=== PATIENT | male | born 2000 | race Caucasian/White ===

== ENCOUNTER 2019-01-03 14:03 | Inpatient (IN) ==
[2019-01-03 14:54] LABS: Appearance Urine Clear (Clear); Bilirubin Urine Negative (Negative); Blood Urine Negative (Negative); Color Urine Yellow; Glucose Urine UA Negative (Negative); Ketones Urine Negative (Negative); Leukocyte Esterase Urine Negative (Negative); Nitrite Urine Negative (Negative); Protein Urine Negative (Negative); Specific Gravity Urine 1.024 (1.000-1.030); Urobilinogen Urine Negative (Negative)
[2019-01-03 15:03] LABS: Basophils # (auto) 0.05 K/uL (0-0.2); Basophils % (auto) 0.6 %; Eosinophils # (auto) 0.14 K/uL (0-0.5); Eosinophils % (auto) 1.6 %; Hematocrit (blood only) 44.9 % (42-52); Hemoglobin 15.3 g/dL (14.0-18.0); Immature Granulocytes # (auto) 0.06 K/uL (0.00-0.02); Immature Granulocytes % (auto) 0.7 %; Lymphocytes # (auto) 2.19 K/uL (1.2-3.4); Lymphocytes % (auto) 24.3 %; Mean Corpuscular Hgb Conc 34.1 g/dL (32-36); Mean Corpuscular Volume 82.4 fL (80-100); Mean Platelet Volume 9.4 fL (7.4-10.4); Neutrophils # (auto) 5.68 K/uL (1.4-6.5); Neutrophils % (auto) 62.8 %; Platelet Count 259 K/uL (130-400); RDW Coefficient of Variation 13.7 % (11.5-14.5); RDW Standard Deviation 41.1 fL (36.4-46.3); Red Blood Count 5.45 M/uL (4.7-6.1); White Blood Count 9.02 K/uL (4.8-10.8)
[2019-01-03 15:21] LABS: Albumin Level 3.6 gm/dl (3.4-5.0); BUN Creatinine Ratio 10.6 (10-20); Calcium 8.4 mg/dl (8.5-10.1); Creatinine Clr Calc Pharmacy 181.9 ml/min; Est GFR (African American) 142.7; Est GFR (Non-African American) 123.1; Potassium 3.9 mmol/L (3.5-5.1)
[2019-01-03 15:21] LABS: Amphetamines+Metham, Urine Neg (Neg); Barbiturates, Urine Neg (Neg); Benzodiazepine, Urine Neg (Neg); Cocaine, Urine Neg (Neg); MDMA (Ecstacy), Urine Neg (Neg); Methadone, Urine Neg (Neg); Opiate, Urine Neg (Neg); Phencyclidine, Urine Neg (Neg)
[2019-01-03 15:32] LABS: Bilirubin,Total 0.5 mg/dl (0.2-1); Globulin 3.6 gm/dl (2.5-4.0); Total Protein 7.2 gm/dl (6.4-8.2)
[2019-01-03 15:46] LABS: Acetaminophen < 2 ug/ml (10-30); Salicylate < 1.7 mg/dl (2.8-20)
[2019-01-03] MEDS ORDERED: MAGNESIUM HYDROXIDE SUSP 30 ML UDC PO PRN (19:11)
[2019-01-03] MEDS ORDERED: SODIUM CHLORIDE 0.65% NA SOLN 45 ML (OCEAN) PRN (19:11)
[2019-01-03] MEDS ORDERED: BISMUTH SUBSALICYLATE PER ML OMNICELL CHARGE PO PRN (19:11)
[2019-01-03] MEDS ORDERED: ALUMINUM/MAGNESIUM SUSP 30 ML UDC PO PRN (19:11)
[2019-01-03] MEDS ORDERED: ACETAMINOPHEN 325 MG TAB PO PRN (19:11)
--- NOTE | 2019-01-03 19:56 | Emergency Department Note ---
Entered by Erendira Larsen acting as a scribe for History of Present Illness General Chief complaint: Mental Health Evaluation Stated complaint: MENTAL HEALTH EVALUATION Source: patient and other (psych porter sample case) History of Present Illness Onset (ago): week(s) (last few weeks) Location: head Pain Consistency: + other (worsening) Maximum Pain Intensity: 2 Quality: + other (mental health) Associated symptoms: + denies other symptoms (any phsycial complaints) and + other (suicidal ideations, sucide attempt) The patient is a 18 year old male who presents to the Emergency Room for a mental health evaluation. Per the psych porter sample case, the patient went to see his therapist at [facility] today and admitted to having increased suicidal ideations. She states that he also told them that he attempted to overdose last night by taking 30 Ambien. She states that they are going to send over a petitioning statement. The patient states that yesterday he had a rough day and that he took them to try to kill himself. He states that he took 30 1 mg Ambien. The patient notes that he has struggled with depression for years, but it has b een worse lately due to issues with school and his family. The patient denies any physical complaints. Home Medications Home Medications Medication Instructions Recorded Confirmed Type desvenlafaxine succinate [Pristiq] 100 mg PO DAILY 01/03/19 01/03/19 History zolpidem [Ambien] 5 mg PO HS PRN 01/03/19 01/03/19 History Allergies Allergy/AdvReac Type Severity Reaction Status Date / Time No Known Allergies Allergy Unverified 08/09/18 17:23 Past Med/Surg History Medical History Depression No pertinent past medical history Family History Other No significant family history Social History Preferred Language: Danish marital status: Single Current Living Situation Comment: Roommate current occupational status: student Feels Safe at Home: Yes Smoking Status: Current some day smoker Review of Systems See HPI for pertinent positives & negatives. and A total of 10 systems reviewed and were otherwise negative Physical Exam Vital Signs Vital Signs - 24 hr 01/03/19 14:07 01/03/19 17:15 01/03/19 18:18 Temperature 36.7 C Temperature Source Oral Sepsis Recent Fever Within 48 Hours No Sepsis New/Unexplained Change in Mental Status No Sepsis Action Taken by Nursing No Action Required Pulse Rate 100 H Pulse Rate [Right Finger] 92 H 96 H Pulse Rhythm [Right Finger] Regular Regular Pulse Strength [Right Finger] Normal Normal Respiratory Rate 16 16 16 Respiratory Effort / Characteristics Non-Labored Non-Labored Respiratory Depth Normal Normal Normal Respiratory Pattern Regular Regular Blood Pressure 178/103 H Blood Pressure [Right Arm] 151/77 H 148/98 H Blood Pressure Mean 128 Blood Pressure Mean [Right Arm] 101 114 Blood Pressure Position Sitting Blood Pressure Position [Right Arm] Lying Sitting Pulse Oximetry 97 97 98 Oxygen Delivery Method Room Air Room Air Room Air GENERAL: Sitting up in bed, alert, well appearing, well nourished, no distress, non-toxic EYE EXAM: normal conjunctiva. OROPHARYNX: no exudate, no erythema, lips, buccal mucosa, and tongue normal and mucous membranes are moist NECK: supple, no nuchal rigidity, no adenopathy, non-tender LUNGS: Clear to auscultation. Normal chest wall mechanics HEART: no murmurs, S1 normal and S2 normal ABDOMEN: abdomen soft, non-tender, normo-active bowel, sounds, no masses, no manoj ound or guarding. BACK: Back is symmetrical on inspection and there is no deformity, no midline tenderness, no CVA tenderness. SKIN: no rashes and no bruising UPPER EXTREMITIES: upper extremities are grossly normal. LOWER EXTREMITIES: No pitting edema. NEURO EXAM: Normal sensorium, cranial nerves II-XII grossly intact, normal speech, no gross weakness of arms, no gross weakness of legs. PSYCH: Admits to suicide attempt yesterday. Course ED COURSE: Vital signs were reviewed and showed hypertension. The patients medical record was reviewed The above diagnostic studies were performed and reviewed. ED treatments and interventions as stated above. 1416: The patient was evaluated in room A6. A complete history and physical examination was performed. 1757: The patient was accepted to [address] [place] [address] at this time. Based on the patients age, coexisting illnesses, exam and lab findings the decision to treat as an inpatient was made. The patient remained stable while under my care. The patient will be evaluated for further management. Medical Decision Making Differential Diagnosis Etiologies such as psychiatric disorder, infection, hypoglycemia, electrolyte abnormalities, cardiac sources, intracerebral event, toxicological process, neurologic disorder, as well as others were entertained. Medical Records Attestation: I reviewed the patient's medical records. Home Medications Current Medication List: was personally reviewed by me Laboratory Data Attestation: I reviewed the patient's lab results. Result diagrams: 01/03/19 14:45 01/03/19 14:45 Lab Results 01/03/19 01/03/19 01/03/19 Range/Units 14:26 14:26 14:45 WBC 9.02 (4.8-10.8) K/uL RBC 5.45 (4.7-6.1) M/uL Hgb 15.3 (14.0-18.0) g/dL Hct 44.9 (42-52) % MCV 82.4 (80-100) fL MCH 28.1 (25-34) pg MCHC 34.1 (32-36) g/dL RDW Std Deviation 41.1 (36.4-46.3) fL RDW Coeff of Cely 13.7 (11.5-14.5) % Plt Count 259 (130-400) K/uL MPV 9.4 (7.4-10.4) fL Immature Gran % (Auto) 0.7 % Neut % (Auto) 62.8 % Lymph % (Auto) 24.3 % Spink % (Auto) 10.0 % Eos % (Auto) 1.6 % Baso % (Auto) 0.6 % Immature Gran # (Auto) 0.06 H (0.00-0.02) K/uL Neut # (Auto) 5.68 (1.4-6.5) K/uL Lymph # (Auto) 2.19 (1.2-3.4) K/uL Spink # (Auto) 0.90 H (0.11-0.59) K/uL Eos # (Auto) 0.14 (0-0.5) K/uL Baso # (Auto) 0.05 (0-0.2) K/uL Sodium (136-145) mmol/L Potassium (3.5-5.1) mmol/L Chloride (98-107) mmol/L Carbon Dioxide (21-32) mmol/L Anion Gap (3-11) BUN (7-18) mg/dl Creatinine (0.6-1.4) mg/dl Est Cr Clr Drug Dosing ml/min Est GFR ( Amer) Est GFR (Non-Af Amer) BUN/Creatinine Ratio (10-20) Glucose (70-99) mg/dl Calcium (8.5-10.1) mg/dl Total Bilirubin (0.2-1) mg/dl AST (15-37) U/L ALT (12-78) U/L Alkaline Phosphatase (45-117) U/L Total Protein (6.4-8.2) gm/dl Albumin (3.4-5.0) gm/dl Globulin (2.5-4.0) gm/dl Albumin/Globulin Ratio (0.9-2) TSH (0.300-4.500) uIu/ml Urine Color Yellow Urine Appearance Clear (Clear) Urine pH 8.0 H (4.5-7.5) Ur Specific [place] 1.024 (1.000-1.030) Urine Protein Negative (Negative) Urine Glucose (UA) Negative (Negative) Urine Ketones Negative (Negative) Urine Blood Negative (Negative) Urine Nitrite Negative (Negative) Urine Bilirubin Negative (Negative) Urine Urobilinogen Negative (Negative) Ur Leukocyte Esterase Negative (Negative) Salicylates (2.8-20) mg/dl Urine Opiates Screen Neg (Neg) Ur Methadone, Qual Neg (Neg) Acetaminophen (10-30) ug/ml Urine Barbiturates Neg (Neg) Ur Phencyclidine (PCP) Neg (Neg) U Amphetamin/Meth Scrn Neg (Neg) MDMA (Ecstasy) Screen Neg (Neg) U Benzodiazepines Scrn Neg (Neg) Ur Cocaine Metabolite Neg (Neg) U Marijuana (THC) Screen Neg (Neg) Ethyl Alcohol mg/dL (0-3) mg/dl 01/03/19 01/03/19 01/03/19 Range/Units 14:45 14:45 14:45 WBC (4.8-10.8) K/uL RBC (4.7-6.1) M/uL Hgb (14.0-18.0) g/dL Hct (42-52) % MCV (80-100) fL MCH (25-34) pg MCHC (32-36) g/dL RDW Std Deviation (36.4-46.3) fL RDW Coeff of Cely (11.5-14.5) % Plt Count (130-400) K/uL MPV (7.4-10.4) fL Immature Gran % (Auto) % Neut % (Auto) % Lymph % (Auto) % Spink % (Auto) % Eos % (Auto) % Baso % (Auto) % Immature Gran # (Auto) (0.00-0.02) K/uL Neut # (Auto) (1.4-6.5) K/uL Lymph # (Auto) (1.2-3.4) K/uL Spink # (Auto) (0.11-0.59) K/uL Eos # (Auto) (0-0.5) K/uL Baso # (Auto) (0-0.2) K/uL Sodium 140 (136-145) mmol/L Potassium 3.9 (3.5-5.1) mmol/L Chloride 107 (98-107) mmol/L Carbon Dioxide 25 (21-32) mmol/L Anion Gap 8.0 (3-11) BUN 9 (7-18) mg/dl Creatinine 0.89 (0.6-1.4) mg/dl Est Cr Clr Drug Dosing 181.9 ml/min Est GFR ( Amer) 142.7 Est GFR (Non-Af Amer) 123.1 BUN/Creatinine Ratio 10.6 (10-20) Glucose 96 (70-99) mg/dl Calcium 8.4 L (8.5-10.1) mg/dl Total Bilirubin 0.5 (0.2-1) mg/dl AST 14 L (15-37) U/L ALT 46 (12-78) U/L Alkaline Phosphatase 60 (45-117) U/L Total Protein 7.2 (6.4-8.2) gm/dl Albumin 3.6 (3.4-5.0) gm/dl Globulin 3.6 (2.5-4.0) gm/dl Albumin/Globulin Ratio 1.0 (0.9-2) TSH 1.240 (0.300-4.500) uIu/ml Urine Color Urine Appearance (Clear) Urine pH (4.5-7.5) Ur Specific [place] (1.000-1.030) Urine Protein (Negative) Urine Glucose (UA) (Negative) Urine Ketones (Negative) Urine Blood (Negative) Urine Nitrite (Negative) Urine Bilirubin (Negative) Urine Urobilinogen (Negative) Ur Leukocyte Esterase (Negative) Salicylates < 1.7 L (2.8-20) mg/dl Urine Opiates Screen (Neg) Ur Methadone, Qual (Neg) Acetaminophen < 2 L (10-30) ug/ml Urine Barbiturates (Neg) Ur Phencyclidine (PCP) (Neg) U Amphetamin/Meth Scrn (Neg) MDMA (Ecstasy) Screen (Neg) U Benzodiazepines Scrn (Neg) Ur Cocaine Metabolite (Neg) U Marijuana (THC) Screen (Neg) Ethyl Alcohol mg/dL < 3.0 (0-3) mg/dl Blood Pressure Blood Pressure Findings: Elevated blood pressure Blood Pressure Disposition: elevated BP felt to be situational MDM Narrative Patient is a 18-year-old male who presents the ER with suicidality and attempted overdose last night on Ambien. He has no other complaints per. Labs were obtained and showed no significant leukocytosis or anemia P along with LFTs bilirubin and TSH was unremarkable. UA was negative. Salicylates and tox was negative. Vitals are unremarkable. Patient was updated bedside. Patient was evaluated by 3 S. This overdose was yesterday around 10 PM. No residual effects at this time. Patient was admitted on 201 for suicide attempt. Impression & Plan Mood disorder, Suicide attempt Discharge Plan Visit Data *Final* Discharge Date/Time: 01/03/19 18:46 Chief Complaint: Mental Health Evaluation Stated Complaint: MENTAL HEALTH EVALUATION ED Provider: Sinan Barrett Discharge Problem: Mood disorder, Suicide attempt Patient Disposition: Admitted As Inpatient Discharge Instructions Interventions: ED Discharge Assessment Last Done: 01/03/19 18:46 The tommyibe's documentation has been prepared under my direction and personally reviewed by me in its entirety. I confirm that the note above accurately reflects all work, treatment, procedures, and medical decision making performed by me.
--- NOTE | 2019-01-04 09:46 | History & Physical ---
Date of Service January 04, 2019 Impression / Recommendations Impression 18-year-old [employer] [facility] [employer] student from [place], who presented to the emergency department after an overdose of Ambien the day prior. He has been on Pristiq for the better part of a year and although he initially found it helpful, he is on a maximum dose and remains depressed and anxious. He provides information describing what may have been a hypomanic episode recently and so after discussing multiple possible medication options, we have agreed to augment with Abilify, if affordable, to target mood/anxiety and potentially an underlying bipolar diathesis. We will DC Ambien and recommend that he not have access moving forward as he has abused it multiple times to OD, get high or get some external courage socially. We will coordinate with his therapist and reschedule his first appt with Dr. Nicole. At this time, the patient requires inpatient care due to the severity of his condition and the ongoing risk for self harm if discharged. (1) Mood disorder: 01/04 Differential includes major depression, SANTY, Bipolar II disorder - Continue Pristiq 100 mg for now - Add Abilify 2.5 mg daily if affordable with insurance - Q 15 min checks for safety - Encourage participation in group and individual counseling - Family meeting when mother arrives. She is also bringing records from [place] psychiatrist - Contact with the university as needed - Safety planning - Assist the patient to explore healthy coping strategies Present on Admission?: Yes Inventory Assets Strengths: Commitment to treatment Needs: Healthy coping strategies Risk Factors Assessment Male: Yes : Yes Do You Have Access To A Gun?: No Health Problems: No Mental Health Diagnoses: Yes Substance Use Disorders: No Previous Attempt: Yes Family History of Suicide: Yes Previous Psychiatric Hospitalization: No Smoker: No Protective Factors Assessment : No Responsible for Young Children: No Employed: No Stable Relationships: Yes Supportive Family: Yes Good Rapport with Provider: Yes Psychiatric History Identifying Data SAMI GUZMAN is a 18-year-old M from [place] who presented to the ED at the encouragement of his therapist at [facility] after admitting to overdosing on Ambien the night before. He is admitted voluntarily. Information is obtained from the patient and considered to be reliable. Chief Complaint "I've been depressed since high school. ". History of Present Illness The patient is a 18 yo male from [place], here attending [employer] [facility] [employer], who describes having been depressed and anxious since high school. He reports having been bullied in school because he was overweight and knox, but never entered into mental health treatment. He came to [employer] [facility] [employer] and during his freshman year felt alone and had difficulty meeting people and so told his mother during the summer after his fresh year that he wanted to see a psychiatrist. He was put on Prozac which didn't seem to help and also had BLANCO's. He switched providers and was put on Pristiq which he continues to take at 100 mg. daily. He felt initially that it was helpful. He says that he did well until Jul 2018 when his best friend from [place], studying in [place], and attempted suicide. He flew down to [place] to be of assistance but was not immediately allowed to see him. Over the course of the next week he managed to assist him and talk with social workers but at the end of the week was exhausted and sad. He returned [employer] and admits that he took several Ambien in order to give him encouraged to respond to somebody on the gait tender. He went on to meet this person in a hotel for a consensual sexual act but apparently it went beyond that and it turned into something aggressive and nonconsensual. He became worried that he might get a sexually transmitted disease and so presented to the emergency department and later got put on medications to prevent HIV. He said the medications caused unpleasant side effects on top of everything else. At that point he decided he needed to get into therapy and so has been seeing Lesli at [facility]. He also had an appointment today to begin treatment with Dr. Nicole. Since the fall he feels like "everything is going downhill" at school, with his mood. He admits to having some chronic suicidal ideation but never had a plan or intent to follow through. Recently with his worsening mood, he feels like "I have had enough, I have been sad for a long while" and decided that he wanted to end his life. 2 nights ago he took 30 Ambien pills. After he had taken them, his boyfriend from [place] called and he spent some time talking on the phone with him. His boyfriend was encouraging him told him to get some orange juice, kept him awake for a while. The patient later fell asleep and when he woke up he was disappointed it had not worked but in the same breath felt guilty for what he might have done to his mother and his boyfriend. He then attended a scheduled appointment with his therapist and she recommended he come to the emergency room. Today he remains sad. He indicates that for the first time in his life "I felt okay with dying" which was scary for him. He reports that his sleep in the last month or more has been "horrible" with difficulty falling asleep, sometimes taking for 5 hours. He reports that his appetite has been poor in that he is eating junk food and his weight is climbing. He reports poor focus and concentration, and has not been attending some of his classes. He admits to chronic anxiety, trouble initiating social contact with others. He has had long-standing panic attacks with no identifiable trigger with last panic attack about 2 days ago. He describes during panic attacks he feels short of breath and like the room is getting very small. He denies ever having had auditory or visual hallucinations. He denies self-injurious behaviors, or any eating disordered behaviors. In terms of possible bipolar symptoms, he indicates that last week for example he had a period of high energy and elevated mood and went to his therapist and questioned why he was even there. During that time he also had less need for sleep and felt like "I can do anything". Past Psychiatric History Previous Psych History: Has a psychiatrist that he sees in [place] Current Psychiatric Diagnosis: MDD Outpatient Services: Lesli Montaño therapist Previous Psych Admissions: None Do You Have Access To A Gun?: No History of Previous Suicide Attempt: Yes Describe Attempts in the Past: 07/2018 OD. Admits to multiple times when he is taken too much Ambien Past Medication Trials: Eleuterio Past Head Trauma/Neuro History History of Concussion/Seizure: No Allergies Allergy/AdvReac Type Severity Reaction Status Date / Time No Known Allergies Allergy Unverified 08/09/18 17:23 Home Medications Home Medications Medication Instructions Recorded Confirmed Type desvenlafaxine succinate [Pristiq] 100 mg PO DAILY 01/03/19 01/03/19 History zolpidem [Ambien] 5 mg PO HS PRN 01/03/19 01/03/19 History Family History Family History of: Depression, Bipolar and Suicide Completion Family Mental Health History Comment: Mother - depression, sister - anorexia, maternal grandmother - depression, maternal grandfather - MDD, maternal great uncle - bipolar & completed suicide Alcohol History Hx of Alcohol Use Over the Past 12 Months: Yes ("socially") AUDIT Total Score: 1 Smoking Use Have You Smoked or Used Tobacco Products in the Last 30 Days: No tobacco type: e-cigarettes Smoking Status: Never smoker Substance History Hx of Prescription Med Misuse Over the Past 12 Months: No Hx of Over the Counter Med Misuse Over the Past 12 Months: No Hx of Inhalent Misuse Over the Past 12 Months: No Hx of Organic Substance Use Over the Past 12 Months: No Hx of Illegal Substances/Street Drug Use Over Past 12 Months: No Problems as a Result of Past Substance Use: None Identified Personal History Living Arrangements: APartment (With 4 roommates) Living Arrangements Comments: Lives with 4 roommates - 2 were friends prior to living together Born In: [place] but grew up in [place] Childhood: Raised by both mother and father. He has 1 younger sister and one younger brother. Highest Grade Completed: [id number] Highest Grade Completed Comment: [employer] majoring in Criminology Employment Status: Student Marital Status: Single Number Of Children: 0 Beliefs That Will Affect Care: None Current Legal Problems: No Hx Legal Problems: No Hx Traumatic Life Events: Yes Psychological Trauma History Comment: Bullied in school Patient History Medical History Depression No pertinent past medical history Family History Other No significant family history Social History Preferred Language: Slovenian Communication Ability: Effective Pay Clerk Required: No Beliefs That Will Affect Care: None marital status: Single Current Living Situation Comment: Roommate current occupational status: student Feels Safe at Home: Yes Smoking Status: Never smoker Review of Systems All systems reviewed & are unremarkable except as noted in HPI & below Physical Exam Mental Examination Physical exam performed by Dr. Barrett in the emergency department has been reviewed and accepted as medical clearance for our unit. Psychiatric Orientation: alert, oriented x 3 and cooperative Apperance: appropriately dressed and appropriately groomed Eye Contact: good eye contact Motor Behavior: steady gait and station and no abnormal motor movements Speech: normal rate/rhythm/volume of speech Affect: + depressed affect and + anxious affect Mood: + depressed mood and + anxious mood Thought Process: goal directed thought process Thought Content: reality based without delusions Suicidal Thoughts: + reports suicidal thoughts, + reports suicidal plan and + reports suicidal intent (Overdosed on Ambien) Homicidal Thoughts: denies homicidal thoughts Hallucinations: no auditory hallucinations and no visual hallucinations Cognition: recent memory grossly intact, remote memory grossly intact and attention grossly intact Estimated Intelligence: average estimated intelligence Insight: + impaired insight Judgement: + impaired judgement Vital Signs (Past 24 Hours) Last Vital Signs Temp 36.5 C 01/04/19 06:46 Pulse 87 01/04/19 06:46 Resp 16 01/04/19 06:46 BP 141/77 H 01/04/19 06:46 Pulse Ox 98 01/03/19 18:18 Results & Data Laboratory Results Laboratory Results - last 24 hr 01/03/19 01/03/19 01/03/19 14:26 14:26 14:45 WBC 9.02 RBC 5.45 Hgb 15.3 Hct 44.9 MCV 82.4 MCH 28.1 MCHC 34.1 RDW Std Deviation 41.1 RDW Coeff of Cely 13.7 Plt Count 259 MPV 9.4 Immature Gran % (Auto) 0.7 Neut % (Auto) 62.8 Lymph % (Auto) 24.3 [place] % (Auto) 10.0 Eos % (Auto) 1.6 Baso % (Auto) 0.6 Immature Gran # (Auto) 0.06 H Neut # (Auto) 5.68 Lymph # (Auto) 2.19 [place] # (Auto) 0.90 H Eos # (Auto) 0.14 Baso # (Auto) 0.05 Sodium Potassium Chloride Carbon Dioxide Anion Gap BUN Creatinine Est Cr Clr Drug Dosing Est GFR ( Amer) Est GFR (Non-Af Amer) BUN/Creatinine Ratio Glucose Calcium Total Bilirubin AST ALT Alkaline Phosphatase Total Protein Albumin Globulin Albumin/Globulin Ratio TSH Urine Color Yellow Urine Appearance Clear Urine pH 8.0 H Ur Specific [place] 1.024 Urine Protein Negative Urine Glucose (UA) Negative Urine Ketones Negative Urine Blood Negative Urine Nitrite Negative Urine Bilirubin Negative Urine Urobilinogen Negative Ur Leukocyte Esterase Negative Salicylates Urine Opiates Screen Neg Ur Methadone, Qual Neg Acetaminophen Urine Barbiturates Neg Ur Phencyclidine (PCP) Neg U Amphetamin/Meth Scrn Neg MDMA (Ecstasy) Screen Neg U Benzodiazepines Scrn Neg Ur Cocaine Metabolite Neg U Marijuana (THC) Screen Neg Ethyl Alcohol mg/dL 01/03/19 01/03/19 01/03/19 14:45 14:45 14:45 WBC RBC Hgb Hct MCV MCH MCHC RDW Std Deviation RDW Coeff of Cely Plt Count MPV Immature Gran % (Auto) Neut % (Auto) Lymph % (Auto) [place] % (Auto) Eos % (Auto) Baso % (Auto) Immature Gran # (Auto) Neut # (Auto) Lymph # (Auto) [place] # (Auto) Eos # (Auto) Baso # (Auto) Sodium 140 Potassium 3.9 Chloride 107 Carbon Dioxide 25 Anion Gap 8.0 BUN 9 Creatinine 0.89 Est Cr Clr Drug Dosing 181.9 Est GFR ( Amer) 142.7 Est GFR (Non-Af Amer) 123.1 BUN/Creatinine Ratio 10.6 Glucose 96 Calcium 8.4 L Total Bilirubin 0.5 AST 14 L ALT 46 Alkaline Phosphatase 60 Total Protein 7.2 Albumin 3.6 Globulin 3.6 Albumin/Globulin Ratio 1.0 TSH 1.240 Urine Color Urine Appearance Urine pH Ur Specific [place] Urine Protein Urine Glucose (UA) Urine Ketones Urine Blood Urine Nitrite Urine Bilirubin Urine Urobilinogen Ur Leukocyte Esterase Salicylates < 1.7 L Urine Opiates Screen Ur Methadone, Qual Acetaminophen < 2 L Urine Barbiturates Ur Phencyclidine (PCP) U Amphetamin/Meth Scrn MDMA (Ecstasy) Screen U Benzodiazepines Scrn Ur Cocaine Metabolite U Marijuana (THC) Screen Ethyl Alcohol mg/dL < 3.0 Current Inpatient Medications Current Inpatient Medications: Current Inpatient Medications Acetaminophen (Tylenol) 650 mg PO Q4H PRN PRN Reason: Headache or Minor Fever Stop: 02/02/19 19:10 Al Hydrox/Mg Hydrox/Simethicone (Maalox) 30 ml PO Q4H PRN PRN Reason: GI Upset Stop: 02/02/19 19:10 Bismuth Subsalicylate (Kaopectate) 15 ml PO PRN PRN PRN Reason: Loose Stool Stop: 02/02/19 19:10 Hydroxyzine HCl (Vistaril) 25 mg PO Q4H PRN PRN Reason: Anxiety Stop: 02/02/19 19:10 Hydroxyzine HCl (Vistaril) 50 mg PO HSZ PRN PRN Reason: Insomnia Stop: 02/02/19 19:10 Magnesium Hydroxide (Milk Of Magnesia) 30 ml PO DAILY PRN PRN Reason: Heartburn Stop: 02/02/19 19:10 Miscellaneous (Order Awaiting Action) 1 ea N/A QS PHILIPPE Stop: 02/03/19 00:00 Last Admin: 01/04/19 00:37 Dose: Not Given Documented by: Sodium Chloride ([place] Nasal) 1 - 2 sprays NA PRN PRN PRN Reason: Nasal Dryness/Congestion Stop: 02/02/19 19:10 CPT Code CPT Code Initial Hospital Care: 83618
[2019-01-04] MEDS: DESVENLAFAXINE SUCCINATE 100 MG PO SCH (19:57)
[2019-01-05] MEDS ORDERED: DESVENLAFAXINE SUCCINATE PO SCH (09:00)
[2019-01-05] MEDS: ARIPiprazole 5 MG TAB PO SCH (09:05)
[2019-01-05] MEDS: DESVENLAFAXINE SUCCINATE 100 MG PO SCH (09:06)
--- NOTE | 2019-01-05 10:48 | Psychiatric Progress Note ---
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 He has been on Pristiq for the better part of a year and although he initially found it helpful, he is on a maximum dose and remains depressed and anxious. He endorses recent symptoms of hypomania, so has been started on aripiprazole for depression with a possible bipolar diathesis. He continues to require inpatient care due to the severity of his mood symptoms with a serious suicide attempts prior to admission, and risk for self harm if discharged prematurely. (1) Mood disorder: 01/04 Differential includes major depression, SANTY, Bipolar II disorder - Continue Pristiq 100 mg for now - Add Abilify 2.5 mg daily if affordable with insurance - Q 15 min checks for safety - Encourage participation in group and individual counseling - Family meeting when mother arrives. She is also bringing records from [place] psychiatrist - Contact with the university as needed - Safety planning - Assist the patient to explore healthy coping strategies 01/05 -Aripiprazole 2.5 mg started today. Fasting lipid profile and glucose ordered for tomorrow for baseline on an atypical antipsychotic. Side effects reviewed with the patient, including metabolic syndrome and the need for ongoing monitoring. -Family meeting held with mother yesterday. Father is coming from [facility] tomorrow. -Ambien has been discontinued, and recommend that he not have access moving forward as he has abused it multiple times to get high or for social courage, and overdosed on it in a suicide attempt. We will coordinate with his therapist and reschedule his first appt with Dr. Nicole. Inventory Assets Strengths: Commitment to treatment Needs: Healthy coping strategies Risk Factors Assessment Male: Yes : Yes Do You Have Access To A Gun?: No Health Problems: No Mental Health Diagnoses: Yes Substance Use Disorders: No Previous Attempt: Yes Family History of Suicide: Yes Previous Psychiatric Hospitalization: No Smoker: No Protective Factors Assessment : No Responsible for Young Children: No Employed: No Stable Relationships: Yes Supportive Family: Yes Good Rapport with Provider: Yes Interval History Identifying Information SAMI GUZMAN is a 18-year-old M from [place] who presented to the ED 01/03/19 at the encouragement of his therapist at [facility] after admitting to overdosing on Ambien the night before. He is admitted voluntarily. Chief Complaint "I'm feeling better after talking to my boyfriend". Review of Systems Sleep Information Total Hours of Sleep: 7 Sleep Comments: pt on q-15 minute checks Meal Information Percent Meal Consumed - Breakfast: 100 Percent Meal Consumed - Lunch: 100 Percent Meal Consumed - Dinner: 100 Subjective Subjective Patient was seen & assessed and interval progress reviewed with Treatment Team. Staff report he had a family meeting with his mother, who flew in from [place], yesterday. They discussed his high school years, as he began to experience depression during his freshman year, but did not tell his family at the time. His sophomore year, he told his parents that he was knox, which they struggled with. They wanted him to attend therapy, which he did briefly. He talked about his parents reaction, that they made him feel ashamed for doing things like painting his fingernails, and his mother expressed understanding that their initial response was overly critical. During that period of time, he had frequent panic attacks, which resolved and he had not had them in a long time, until the day of his overdose. He talked about a sexual encounter in July 2018 which seemed to trigger his most recent episode of depression. He was in [place] visiting a friend who had attempted suicide, was feeling lonely, and used an kvng on his phone to find a male, who he invited to his hotel room. Although their sexual interaction was initially consensual, the other individual then became aggressive, and at one point the patient noticed he had taken off his condom and "freaked out." He sought preventative HIV treatment afterwards, and felt disappointed in himself. He talked about his difficulty disclosing things to his parents due to their past reactions. His mother stated that she would like to stay in [place] until the end of the semester, which the patient was not in agreement with, stating he enjoys his independence and does not want to disrupt his family. They agreed to postpone this topic until later. On my assessment, he reports that mood is improved today, which he attributes to a good night of sleep last night. He started the aripiprazole today, and is hopeful that it will help, but also worried that he will have side effects. He is working on a safety plan, and states that one thing he wants to do is "stay away from that medication (Ambien)." He states that he was initially taking extra doses of the medication, not necessarily in an attempt to end his life, but then became altered and decided to overdose in a suicide attempt. He describes feeling "really scared, like I did not recognize myself." It was helpful to talk with his boyfriend and the counselor yesterday. He feels safe here and denies suicidal thoughts. His father is coming from [facility] tomorrow, and he is hoping to talk to his parents about plans for after discharge, as he would like them to stay for about a week, but would then like them to go home. Physical Exam Psychiatric Orientation: alert and oriented x 3 Apperance: appropriately dressed, appropriately groomed and appeared stated age Eye Contact: good eye contact Motor Behavior: steady gait and station and no abnormal motor movements Speech: normal rate/rhythm/volume of speech Affect: + depressed affect (But brightens appropriately with brief periods of smiling) Mood: + depressed mood (But improved from admission) Thought Process: goal directed thought process Thought Content: reality based without delusions Suicidal Thoughts: denies suicidal thoughts Homicidal Thoughts: denies homicidal thoughts Hallucinations: no auditory hallucinations Cognition: recent memory grossly intact, attention grossly intact and language grossly intact Insight: + fair insight Judgement: + fair judgement Vital Signs (Past 24 Hours) Last Vital Signs Temp 36.5 C 01/05/19 06:44 Pulse 80 01/05/19 06:45 Resp 16 01/05/19 06:44 BP 140/95 01/05/19 06:45 Pulse Ox 98 01/03/19 18:18 Results & Data Current Inpatient Medications Current Inpatient Medications: Current Inpatient Medications Acetaminophen (Tylenol) 650 mg PO Q4H PRN PRN Reason: Headache or Minor Fever Stop: 02/02/19 19:10 Al Hydrox/Mg Hydrox/Simethicone (Maalox) 30 ml PO Q4H PRN PRN Reason: GI Upset Stop: 02/02/19 19:10 Aripiprazole (Abilify) 2.5 mg PO QAM PHILIPPE Stop: 02/04/19 08:59 Last Admin: 01/05/19 09:05 Dose: 2.5 mg Documented by: Bismuth Subsalicylate (Kaopectate) 15 ml PO PRN PRN PRN Reason: Loose Stool Stop: 02/02/19 19:10 Desvenlafaxine Succinate (Pristiq) 1 ea PO DAILY PHILIPPE Stop: 02/04/19 08:59 Last Admin: 01/05/19 09:06 Dose: 1 ea Documented by: Hydroxyzine HCl (Vistaril) 25 mg PO Q4H PRN PRN Reason: Anxiety Stop: 02/02/19 19:10 Hydroxyzine HCl (Vistaril) 50 mg PO HSZ PRN PRN Reason: Insomnia Stop: 02/02/19 19:10 Magnesium Hydroxide (Milk Of Magnesia) 30 ml PO DAILY PRN PRN Reason: Heartburn Stop: 02/02/19 19:10 Sodium Chloride ([place] Nasal) 1 - 2 sprays NA PRN PRN PRN Reason: Nasal Dryness/Congestion Stop: 02/02/19 19:10 Post Discharge Appointments Primary Care Physician Name Of Family Doctor: [facility] Primary Care Provider Appointment Comment: Follow up as needed Psychiatrist Name of Psychiatrist: [facility] Psychiatrist's Psychiatric Appointment Comment: [address] [place] [address], [place] [address] Therapist Name of Therapist: Ender Montaño Therapist's Date of Therapist Appointment: 01/17/19 Time of Therapist Appointment: 11am Therapy Appointment Comment: [address] [place] [address] Management Engineer Name of Management Engineer: Student [facility] Advocacy Phone Number for Management Engineer: [phone] Case Management Appointment Comment: [address] [facility] Contact Information Discharge Discharge Address: [address] [place] [address], [place] [address] CPT Code CPT Code 62397
[2019-01-06] MEDS: ARIPiprazole 5 MG TAB PO SCH (07:39)
[2019-01-06] MEDS: DESVENLAFAXINE SUCCINATE 100 MG PO SCH (07:40)
[2019-01-06 07:58] LABS: Glucose Fasting 86 mg/dl (70-99)
[2019-01-06 08:04] LABS: Chol HDL Ratio 5; Cholesterol 193 mg/dl (0-200); HDL Cholesterol 40 mg/dl; LDL Cholesterol Calculated 123 mg/dl; Triglycerides 150 mg/dl (0-150); VLDL Cholesterol 30 mg/dl
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
[2019-01-07] MEDS: ARIPiprazole 5 MG TAB PO SCH (08:36)
[2019-01-07] MEDS: DESVENLAFAXINE SUCCINATE 100 MG PO SCH (08:36)
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
== END 2019-01-07 11:20 | disposition home or self-care (01) | DRG 885 ==
LOC: ED 14:03 → 3S 17:44